=== PATIENT | female | born 1965 | race Caucasian/White ===

== ENCOUNTER 2020-10-29 08:43 | Day surgery (SDC) | payer SELFPAY ==
[2020-10-27 13:58] VITALS: BMI 24.0
[2020-10-29] MEDS ORDERED: BUPIVACAINE HCL/PF 0.25% (2.5MG/ML) 10 ML VIAL ONE (09:48)
[2020-10-29] MEDS ORDERED: GUM MASTIC/STORAX/MSAL/ALCOHOL 1 DRP DROPSBTL MC ONE (09:48)
[2020-10-29] MEDS ORDERED: MIDAZOLAM HCL 2 MG/2 ML SINGLE DOSE VIAL ONE (09:56)
[2020-10-29] MEDS ORDERED: PROPOFOL 20 ML ONE (09:57)
[2020-10-29] MEDS ORDERED: ONDANSETRON 4 MG/2 ML VIAL IVPUSH PRN (10:03)
[2020-10-29] MEDS ORDERED: oxyCODONE HCL 5 MG TABLET PO PRN (10:03)
[2020-10-29] MEDS ORDERED: LACTATED RINGERS SOLUTION 1,000 ML IV SCH (10:15)
[2020-10-29] MEDS ORDERED: ONDANSETRON 4 MG/2 ML VIAL ONE (12:27)
[2020-10-29] MEDS ORDERED: ceFAZolin SODIUM 1 GM VIAL ONE (12:27)
[2020-10-29] MEDS ORDERED: LIDOCAINE HCL/PF 2% SDV 5ML VIAL ONE (12:27)
[2020-10-29] MEDS ORDERED: DEXAMETHASONE SOD PHOSPHATE 4 MG/1 ML VIAL ONE (12:27)
[2020-10-29] MEDS ORDERED: BUPIVACAINE HCL/PF 0.25% (2.5MG/ML) 10 ML VIAL IJ ONE (12:33)
[2020-10-29] MEDS ORDERED: PROMETHAZINE HCL 25 MG/1 ML VIAL ONE (12:44)
[2020-10-29] MEDS: PROMETHAZINE HCL 25 MG/1 ML VIAL IVPUSH PRN ×2 (12:48→13:29)
[2020-10-29] MEDS ORDERED: ACETAMINOPHEN WITH CODEINE 300MG/30MG TABLET ONE (13:58)
[2020-10-29 14:08] VITALS: TEMP 97.8
[2020-10-29] MEDS ORDERED: ACETAMINOPHEN WITH CODEINE 300MG/30MG TABLET PO PRN (15:19)
[2020-10-29 15:35] VITALS: BP 138/76; PULSE 74
== END 2020-10-29 15:38 | disposition home or self-care (01) ==
LOC: FASU 08:43
PROVIDERS: ATTEND Surgery Plastic and Reconstructive Surgery
CPT/HCPCS: 94760